=== PATIENT | female | born 1940 | race Caucasian/White ===

== ENCOUNTER 2016-06-25 17:36 | Emergency (ER) | payer OTHER ==
[2016-06-25] MEDS ORDERED: Albuterol 2.5 MG/3 ML NEB.SOL* (0.083%) INH ONE (18:27)
--- NOTE | 2016-06-25 18:57 | UC ---
Allan Jackson Billy, scribed for Maggi Canada MD on 06/25/16 at 1826 . Respiratory Complaint HPI - HPI Summary HPI Summary: Patient is a 75 year-old female coming to [facility] with her son with a complaint of chest congestion and cough since June 16, 2016. Patient is a poor historian. Patient also reports rhinorrhea, postnasal drip, and sinus congestion, for which she has been taking Mucinex. She denies any chest pain. She states she had one headache on MondayJune 17, but has had no headaches since then. Denies any history of COPD or emphysema. Patient is a former smoker who quit many years ago. - History of Current Complaint Chief Complaint: UCGeneralIllness Stated Complaint: SINUS CONGESTION Time Seen by Provider: 06/25/16 18:19 Hx Obtained From: Patient Onset/Duration: Gradual Onset, Lasting Days, Still Present Timing: Constant Severity Initially: Moderate Severity Currently: Moderate Character: Cough: Nonproductive Aggravating Factors: Nothing Alleviating Factors: Nothing Associated Signs And Symptoms: Positive: URI, Nasal Congestion, Sinus Discomfort - Allergies/Home Medications Allergies/Adverse Reactions: Allergies Allergy/AdvReac Type Severity Reaction Status Date / Time Peanut Oil Allergy Intermediate Hives Verified 06/25/16 18:04 Home Medications: Home Medications EPINEPHrine 1 MG/ML AMP* [EPINEPHphrine 1:1000 AMP*] 0.3 mg SUBCUT ONCE [History Confirmed 06/25/16] Pseudoephedrine-Guaifenesin [Mucinex D Maximum Strengt 120-1200 mg] 06/25/16 [ History] PMH/Surg Hx/FS Hx/Imm Hx Previously Healthy: Yes Cardiovascular History Of: Reports: Hypertension Respiratory History Of: Denies: COPD - Surgical History Surgical History: None - Family History Known Family History: Negative: Cardiac Disease, Respiratory Disease - Social History Alcohol Use: Weekly Alcohol Amount: one drink per week Substance Use Type: None Smoking Status (MU): Former Smoker Have You Smoked in the Last Year: No When Did the Patient Quit Smoking/Using Tobacco: over 15 years ago Review of Systems Constitutional: Negative Skin: Negative Eyes: Negative ENT: Nasal Discharge - postnasal drip, Other - sinus congestion Respiratory: Cough, Other - chest congestion Cardiovascular: Negative Gastrointestinal: Negative Genitourinary: Negative Motor: Negative Neurovascular: Negative Musculoskeletal: Negative Neurological: Negative Psychological: Negative All Other Systems Reviewed And Are Negative: Yes Physical Exam Triage Information Reviewed: Yes Appearance: Well-Appearing Vital Signs: Initial Vital Signs Temp 98.5 F 06/25/16 18:07 Pulse 77 06/25/16 18:07 Resp 16 06/25/16 18:07 Pulse Ox 99 06/25/16 18:07 Vital Signs Reviewed: Yes Eye Exam: Normal Eyes: Positive: Conjunctiva Clear ENT: Positive: Pharyngeal erythema - mild, Nasal drainage - postnasal drip, TMs normal, Other:. Negative: TM bulging, TM dull, TM red, Tonsillar exudate Dental Exam: Normal Neck: Positive: Supple, Nontender, No Lymphadenopathy Respiratory: Positive: No respiratory distress, No accessory muscle use, Decreased breath sounds. Negative: Crackles, Rhonchi, Wheezing Cardiovascular: Positive: RRR, Pulses Normal Abdomen Description: Positive: Nontender, Soft Musculoskeletal Exam: Normal Neurological Exam: Normal Psychological Exam: Normal Skin Exam: Normal UC Diagnostic Evaluation - Laboratory O2 Sat by Pulse Oximetry: 99 Re-Evaluation - Re-Evaluation First Eval Re-Evaluation Time: 18:51 Change: Improved - much better breath sounds and producing significant mucous. she feels that the chest pressure is relieved. no w/r/r. Respiratory Course/Dx - Differential Dx/Diagnosis Differential Diagnosis/HQI/PQRI: Asthma, Bronchitis, Lower Resp Infection, Sinusitis Provider Diagnoses: Bronchitis Discharge - Discharge Plan Condition: Stable Disposition: HOME Prescriptions: Albuterol HFA INHALER* [Ventolin HFA Inhaler*] 2 puff INH Q4H PRN #1 mdi PRN Reason: Cough Patient Education Materials: Acute Bronchitis (ED) Additional Instructions: Make sure to follow up with your PCP in [place] as soon as you get back home in 2-3 days. Get plenty of fluids. humidifier may help as well. There is no evidence of bacterial infection. The documentation as recorded by the Allan glasgow Billy accurately reflects the service I personally performed and the decisions made by me, Maggi Canada MD.
== END 2016-06-25 18:58 | disposition home or self-care (01) ==
LOC: UCEAST 17:36
DX: J40 Bronchitis, not specified as acute or chronic (principal); Z87.891 Personal history of nicotine dependence
CPT/HCPCS: 99202; G0463